=== PATIENT | female | born 1960 | race Two or more races ===

== ENCOUNTER 2024-06-30 23:42 | Emergency (ER) | payer BC ==
[~2024-06-30] VITALS: Ht 149.9 cm; Wt 46.7 kg
[2024-07-01] MEDS ORDERED: KETOROLAC TROMETHAMINE 30 MG INJ ONE (00:24)
[2024-07-01] MEDS: KETOROLAC TROMETHAMINE 30 MG INJ IM ONE (00:30)
[2024-07-01] MEDS ORDERED: HYDROCODONE/APAP 5-325MG TABLET ONE (01:05)
[2024-07-01] MEDS ORDERED: GABA-532 PO (01:22)
[2024-07-01] MEDS ORDERED: NAPR-1009 PO (01:22)
[2024-07-01] MEDS ORDERED: HYDR-4209 PO (01:22)
[2024-07-01] MEDS: HYDROCODONE/APAP 5-325MG TABLET PO ONE (01:29)
[2024-07-01 01:41] VITALS: BP 145/78; O2SAT 99
== END 2024-07-01 01:42 | disposition home or self-care (01) ==
LOC: ER 23:48
DX: M54.41 Lumbago with sciatica, right side (principal); I10 Essential (primary) hypertension; E11.9 Type 2 diabetes mellitus without complications; Z88.1 Allergy status to other antibiotic agents
CPT/HCPCS: 99285; 72131; 72192; 96372; J1885; A4606; A4663